=== PATIENT | female | born 1975 | race Caucasian/White ===

== ENCOUNTER → 2022-04-30 | Emergency (ER) | payer MEDICAID ==
[~2022-04-30] VITALS: Ht 162.6 cm; Wt 61.0 kg
[~2022-04-30] MED LIST: ACETAMINOPHEN 325MG TABLET PO ONE; TOPUD PO
[2022-04-30 09:15] VITALS: BP 149/116
== END ==
LOC: ER 09:28
DX: R07.89 Other chest pain (principal); V49.9XXA Car occupant (driver) (passenger) injured in unspecified traffic accident, initial encounter; Y93.89 Activity, other specified; Y92.89 Other specified places as the place of occurrence of the external cause; Y99.8 Other external cause status
CPT/HCPCS: 71045; 99283